=== PATIENT | male | born 1985 | race Caucasian/White ===

== ENCOUNTER 2018-03-27 08:42 | Emergency (ER) | payer BC, OTHER ==
[2018-03-27] MEDS ORDERED: Bacitracin/Neomycin/Polymyxin B Oint 0.9 GM U/D Packet ONE (09:33)
--- NOTE | 2018-03-27 09:33 | EDM.PDOC ---
ED HPI GENERAL MEDICAL PROBLEM - General Chief Complaint: Laceration Stated Complaint: left 4th finger laceration Time Seen by Provider: 03/27/18 09:18 Source of Information: Reports: Patient History Limitations: Reports: No Limitations - History of Present Illness INITIAL COMMENTS - FREE TEXT/NARRATIVE: Patient cut left hand while moving tires while working at [employer]. Has laceration in webbing area between bases of 3rd and 4th fingers. Bleeding controlled. No loss of function. No numbness or tingling. No other complaints. Treatments PROCEDURE ANALYST: Reports: Dressing(s) Left 4-Ring finger Pain Score (Numeric/FACES): 2 - Related Data Allergies Allergy/AdvReac Type Severity Reaction Status Date / Time No Known Allergies Allergy Verified 03/27/18 08:46 Home Meds: Home Meds Escitalopram Oxalate 20 mg PO DAILY 03/27/18 [History] Omeprazole 20 mg PO DAILY 03/27/18 [History] Past Medical History Gastrointestinal History: Reports: GERD Psychiatric History: Reports: Depression - Past Surgical History HEENT Surgical History: Reports: Adenoidectomy, Tonsillectomy GI Surgical History: Reports: Appendectomy Social & Family History - Tobacco Use Smoking Status *Q: Never Smoker - Recreational Drug Use Recreational Drug Use: No ED ROS GENERAL - Review of Systems Review Of Systems: ROS reveals no pertinent complaints other than HPI. ED EXAM, SKIN/RASH Exam: See Below Exam Limited By: No Limitations General Appearance: Alert, WD/WN, No Apparent Distress Eye Exam: Bilateral Eye: EOMI, PERRL Throat/Mouth: Normal Lips, Normal Voice, No Airway Compromise Head: Atraumatic, Normocephalic Neck: Supple Respiratory/Chest: No Respiratory Distress Extremities: Normal Range of Motion, Normal Capillary Refill, Other (laceration as noted in HPI left hand) Neurological: Alert, Oriented, Normal Cognition, Normal Gait, No Motor/Sensory Deficits Psychiatric: Normal Affect, Normal Mood Skin: Warm, Dry, Wound/Incision (laceration as noted in HPI. Dorsally. Also small superficial abrasion over 5th finger. ) ED SKIN PROCEDURES - Laceration/Wound Repair Left Hand Lac/Wound length In cm: 1.5 Appearance: Subcutaneous, Linear, Clean Distal NVT: Neuro & Vascular Intact, No Tendon Injury Anesthetic Type: Local Local Anesthesia - Lidocaine (Xylocaine): 1% Plain Local Anesthetic Volume: 4cc Skin Prep: Saline Saline Irrigation (cc's): 20 (performed by nursing staff) Exploration/Debridement/Repair: Wound Explored, In a Bloodless Field, Explored to Base, No Foreign Material Found Closed with: Sutures Suture Size: 4-0 # of Sutures: 3 Suture Type: Nylon Drain Placement: No Sterile Dressing Applied: Nurse Tetanus Status Addressed: Yes Complications: No Course - Vital Signs Last Recorded V/S: Last Vital Signs Temp 36.2 C 03/27/18 08:58 Pulse 66 03/27/18 08:58 Resp 14 03/27/18 08:58 BP 132/84 03/27/18 10:06 Pulse Ox 100 03/27/18 08:58 - Orders/Labs/Meds Meds: Medications Discontinued Medications Generic Name Dose Route Start Last Admin Trade Name Dennise PRN Reason Stop Dose Admin Lidocaine HCl 5 ml 03/27/18 09:20 03/27/18 09:26 Xylocaine-Mpf 1% INJECT 03/27/18 09:21 5 ml ONETIME ONE Administration Neomycin/Polymyxin/Bacitracin Confirm 03/27/18 09:33 03/27/18 09:35 Triple Antibiotic Oint Administered 03/27/18 09:34 1 each Dose Administration 1 each .ROUTE .STK-MED ONE - Re-Assessments/Exams Free Text/Narrative Re-Assessment/Exam: 03/27/18 10:00 Laceration repaired. Tetanus up to date (2014) BP improved at time of discharge. Departure - Departure Time of Disposition: 09:56 Disposition: Home, Self-Care 01 Condition: Good Clinical Impression: Laceration of left hand Qualifiers: Encounter type: initial encounter Foreign body presence: without foreign body Qualified Code(s): S61.412A - Laceration without foreign body of left hand, initial encounter - Discharge Information Instructions: Stitches, Chana, or Adhesive Wound Closure, [id number] Referrals: Tatiana Mock PA-C [Primary Care Provider] - Forms: ED Department Discharge Additional Instructions: Keep area clean/dry/covered as we discussed in the ER. Follow up if you have concerns or signs of infection. Sutures can be removed next or Saturday.
== END 2018-03-27 10:15 | disposition home or self-care (01) ==
LOC: LL.ED 08:42
DX: S61.412A Laceration without foreign body of left hand, initial encounter (principal); K21.9 Gastro-esophageal reflux disease without esophagitis; F32.9 Major depressive disorder, single episode, unspecified; Z90.49 Acquired absence of other specified parts of digestive tract; W45.8XXA Other foreign body or object entering through skin, initial encounter; Z79.899 Other long term (current) drug therapy; Y99.0 Civilian activity done for income or pay
CPT/HCPCS: 12001; 99283